=== PATIENT | male | born 1990 | race Caucasian/White ===

== ENCOUNTER 2022-12-15 04:18 | Emergency (ER) | payer BC ==
[~2022-12-15] VITALS: Ht 193 cm; Wt 126.6 kg
[2022-12-15] MEDS ORDERED: IPRAT-ALBUT 0.5-3 ML INH (04:34)
[2022-12-15] MEDS ORDERED: ADVAIR 100-501 EACH (04:34)
== END 2022-12-15 05:05 | disposition home or self-care (01) ==
LOC: ED 04:18
DX: J45.901 Unspecified asthma with (acute) exacerbation (principal); Z91.013 Allergy to seafood; Z79.899 Other long term (current) drug therapy
CPT/HCPCS: 94640; 99284-25